=== PATIENT | female | born 1950 | race Caucasian/White ===

== ENCOUNTER 2018-09-16 19:21 | Emergency (ER) | payer MEDICARE ==
[~2018-09-16] VITALS: Ht 154.9 cm; Wt 77.6 kg
--- NOTE | 2018-09-16 19:24 | NUR ---
pt arrived via [facility] at this time. [facility]. bruising noted to nose and chin. small lac to nose. md at bedside. c-collar applied per md order.
[2018-09-16] MEDS ORDERED: HYDROCODONE/APAP 5MG-325MG TAB PO ONE (20:00)
--- NOTE | 2018-09-16 21:30 | Diagnostic Imaging Report ---
EXAMINATION: Head CT without contrast. HISTORY:Status post fall. COMPARISON:None. TECHNIQUE: Multidetector axial images were obtained from the foramen magnum to the vertex without contrast. The images were reconstructed using brain and bone algorithms. Thin section brain images were reformatted into coronal and sagittal planes. Dose modulation, iterative reconstruction, and/or weight based adjustment of the mA/kV was utilized to reduce the radiation dose to as low as reasonably achievable. Intravenous contrast: None IMAGE QUALITY: Acceptable. FINDINGS: Skull/scalp: No lytic or blastic. lesions. No surgical changes. Parenchyma: Focal hypodensity in the inferior aspect of left lentiform nucleus either represents prominent perivascular space or an old lacunar infarct. Nonspecific few, scattered supratentorial white matter hypodensity are likely related to small vessel ischemic changes. No acute hemorrhage, mass or acute major vascular territorial infarct. Arteries: No density suggestive of thrombosis. Dural sinuses: No abnormal density suggestive of thrombosis. Ventricles: No hydrocephalus or displacement. Extra-axial spaces: No abnormal density. Brain volume: Generalized age-related cerebral volume loss. Craniocervical junction: No mass, Chiari malformation, or basilar invagination. Sella: No mass. Paranasal/mastoid sinuses: Imaged portions unremarkable. IMPRESSION: 1. No acute posttraumatic intracranial abnormality. 2. Mild supratentorial white matter microvascular ischemic changes. 3. Generalized age-related cerebral volume loss. Signed by: Dr. Charlene Holley M.D. on 09/16/2018 9:27 PM
--- NOTE | 2018-09-16 21:35 | Diagnostic Imaging Report ---
History: Status post fall. Comparison studies: None Technique: Axial images were obtained through the cervical region.. Coronal and sagittal images reconstructed from the axial data. Dose modulation, iterative reconstruction, and/or weight based adjustment of the mA/kV was utilized to reduce the radiation dose to as low as reasonably achievable. Intravenous contrast: None Findings: Fractures: None. Soft tissue injuries: None. Atlantoaxial articulation: Intact. Alignment: Reversal of normal cervical lordosis is either positional or due to muscle spasm. No scoliosis. 1.5 mm grade 1 anterolisthesis at C3-C4 and 1.5 mm grade 1 retrolisthesis at C6-C7 are likely degenerative. Cervicomedullary junction: No abnormalities. The foramen magnum is patent. Soft tissues: No abnormalities. Vertebrae: No fractures, infection or neoplasm. Degenerative changes: C3-C4: Moderate right foraminal stenosis due to facet and uncovertebral arthrosis. C4-C5: Mild degenerative disc disease and anterior vertebral osteophyte. C5-C6: Mild degenerative disc disease. Moderate right foraminal stenosis due to facet and uncovertebral arthrosis. C6-C7: Moderate degenerative disc disease. Mild right foraminal stenosis due to facet and uncovertebral arthrosis. IMPRESSION: 1. No acute cervical spine fracture or dislocation. Reversal of normal cervical lordosis is either positional or due to muscle spasm. 2. Ligament, spinal cord and or vascular abnormalities cannot be excluded on the basis of this examination. 3. Cervical spondylosis as detailed above. Signed by: Dr. Charlene Holley M.D. on 09/16/2018 9:32 PM
--- NOTE | 2018-09-16 21:42 | Diagnostic Imaging Report ---
History:Status post fall. Comparison studies: None Technique: Axial images were obtained through the maxillofacial region. Coronal and sagittal images reconstructed from the axial data. Dose modulation, iterative reconstruction, and/or weight based adjustment of the mA/kV was utilized to reduce the radiation dose to as low as reasonably achievable. Intravenous contrast: None Findings: Soft tissues: Mild perinasal soft tissue edema. No radiopaque foreign body or soft tissue emphysema. Nonspecific radiopaque density in right lateral aspect of oral cavity. Bones: No acute fracture. Metallic plate and fixation screws in left mandibular ramus/body. Orbits: Globes: Intact Extra or intraconal abnormalities: None. Paranasal sinuses: Mild mucosal thickening in bilateral maxillary sinuses. IMPRESSION: 1. Mild perinasal soft tissue edema. 2. No acute fracture. Signed by: Dr. Charlene Holley M.D. on 09/16/2018 9:38 PM
[2018-09-16 22:48] VITALS: BP 111/59
--- NOTE | 2018-09-16 22:55 | NUR ---
report called to [facility], spoke to geneva duffy. ambulance called for transport back to [facility].
== END 2018-09-16 23:50 ==
LOC: ER 19:21
DX: S06.0X0A Concussion without loss of consciousness, initial encounter (principal); S00.83XA Contusion of other part of head, initial encounter; W01.0XXA Fall on same level from slipping, tripping and stumbling without subsequent striking against object, initial encounter; Y92.008 Other place in unspecified non-institutional (private) residence as the place of occurrence of the external cause; I10 Essential (primary) hypertension; J44.9 Chronic obstructive pulmonary disease, unspecified; I50.9 Heart failure, unspecified
CPT/HCPCS: 70450; 70486; 72125; 99284

== ENCOUNTER 2020-03-11 17:00 | Emergency (ER) | payer MEDICARE ==
[~2020-03-11] VITALS: Ht 154.9 cm; Wt 84.5 kg
--- OUTSIDE RECORDS SUMMARY | 2020-03-11 17:47 | XMS REPORT | Continuity of Care Document ---
Author Author [facility] t Organization [facility] Address [address] [place] [address] Phone Unavailable Support Name Relationship Address Phone [address] [place] [address] JIM[address] [place] [address] PREETI MAGA[address] [place] [address] LUIS [address]ANI[address] [place] [address] Care Team Providers Care Pack Press Operator Name Role Phone NORMA ARRIOLA MD PCP MO ARRIOLA Attphys Unavailable NATHALIA, MAGO Attphys Unavailable BARBANDI, FAROUK Attphys Unavailable ERGUN, GULCHIN Attphys Unavailable JUAN, PARVEZ Attphys Unavailable HOLLAND, MARIANA Attphys Unavailable COURTNEY SAMAYOA Attphys Unavailable FLORY, SOSA Attphys Unavailable DREW, S AMBICA Attphys Unavailable ERGUN, GULCHIN Admphys Unavailable BARBANDI, FAROUK Admphys Unavailable JUAN, PARVEZ Admphys Unavailable SOSA RUTH Admphys Unavailable Payers Payer Name Policy Type Policy Number Effective Date Expiration Date S ource Problems This patient has no known problems. Allergies, Adverse Reactions, Alerts Allergy Name Allergy Type Status Severity Reaction(s) Onset Date Inacti ve Date Treating Clinician Comments Source No Known Allergies DA Active U 2018-04-24 00:00:00 [facility] No Known Contrast Allergies DA Active U 2003-12-05 00:00: 00 [facility] No Known Drug Allergies DA Active U 2003-12-05 00:00:00 [facility] No Known Food Allergies DA Active U 2003-12-05 00:00:00 [facility] No Known Other Allergies DA Active U 2003-12-05 00:00:00 [facility] No Known Drug Intolerances DA Active U 2003-07-13 00:00:0 0 [facility] Medications This patient has no known medications. Procedures Procedure Date / Time Performed Performing Clinician [facility] e Computed tomography of brain without radiopaque contrast 201 [facility] wo contrast 2018-09-16 00:00:00 LISA RUSSELL [facility] Encounters Start Date/Time End Date/Time Encounter Type Admission Type [facility] Care Department Encounter ID Source 2020-03-07 00:00:00 2020-03-07 00:00:00 Outpatient MO ARRIOLA [facility] [id number] [place] Yarsani 2020-02-07 00:00:00 2020-02-07 00:00:00 Outpatient JULIETTE SLOANY [facility] [id number] [place] [facility] 2020-01-25 00:00:00 2020-01-25 00:00:00 Outpatient THERESEMabelDAGOBERTO [facility] [id number] [place] Y[facility] 2019-11-09 00:00:00 2019-11-09 00:00:00 Outpatient ERGUNLAURA N [facility] 021 [id number] [place] Y[facility] 2019-11-04 00:00:00 2019-11-04 00:00:00 Outpatient NATHALIA MAGO [facility] [id number] [place] [facility] 2019-10-28 00:00:00 2019-10-28 00:00:00 Outpatient JUANPARVEZ COLUNGA [facility] [id number] [place] [facility] 2019-10-26 00:00:00 2019-10-26 00:00:00 Outpatient ERGUN, EFRENLCHI N [facility] [id number] [place] Y[facility] 2019-10-15 00:00:00 2019-10-15 00:00:00 Outpatient MARIANA LINO [facility] [id number] [place] [facility] 2019-08-10 00:00:00 2019-08-10 00:00:00 Outpatient DAGOBERTO WILKS [facility] 021 [id number] [place] Y[facility] 2019-08-02 00:00:00 2019-08-02 00:00:00 Outpatient JOHNSON SAMAYOAE [facility] [id number] [place] [facility] 2019-07-28 00:00:00 2019-07-28 00:00:00 Outpatient MARIANA LINO [facility] [id number] [place] [facility] 2019-06-25 00:00:00 2019-06-25 00:00:00 Outpatient PARVEZ MARTINEZ [facility] 021 [id number] [place] [facility] 2019-05-17 00:00:00 2019-05-17 00:00:00 Outpatient MAGO SLOAN [facility] [id number] [place] [facility]ani 2019-05-03 00:00:00 2019-05-03 00:00:00 Outpatient DAGOBERTO WILKS [facility] [id number] [place] Y[facility]ani 2019-02-17 00:00:00 2019-02-17 00:00:00 Outpatient JACQUI RUTH [facility] 021 [id number] [place] [facility] 2019-02-04 00:00:00 2019-02-04 00:00:00 Outpatient JACQUI RUTH [facility] [id number] [place] [facility] 2018-09-16 19:21:00 2018-09-16 23:50:00 Departed Emergency Room 1 DOUGLAS RUSSELL [facility] [id number] [facility] Results Test Description Test Time Test Comments Results Result Comments Source CT DAYNA YAP/ANJELICA WO 2018-09-16 21:32:00 [facility] [address] [place] [address] Patient Name: KATELYN BLAIR MR #: [id number] : 1950 Age/Sex: 67/F Req #: [id number] Adm Physician: Ordered by: DOUGLAS RUSSELL MD Report #: [id number] Location: ER Room/Bed: Procedure: [id number] CT/CT MAXIO FAC/PARANAS WO Exam Date: 09/16/18 Exam Time: 2029 REPORT STATUS: Signed History:Status post fall. Comparison studies: None Technique: Axial images were obtained through the maxillofacial region. Coronal and sagittal images reconstructed from the axial data. Dose modulation, iterative reconstruction, and/or weight based adjustment of the mA/kV was utilized to reduce the radiation dose to as low as reasonably achievable. Intravenous contrast: None Findings: Soft tissues: Mild perinasal soft tissue edema. No radiopaque foreign body or soft tissue emphysema. Nonspecific radiopaque density in right lateral aspect of oral cavity. Bones: No acute fracture. Metallic plate and fixation screws in left mandibular ramus/body. Orbits: Globes: Intact Extra or intraconal abnormalities: None. Paranasal sinuses: Mild mucosal thickening in bilateral maxillary sinuses. IMPRESSION: 1. Mild perinasal soft tissue edema. 2. No acute fracture. Signed by: Dr. Charlene Holley M.D. on 09/16/2018 9:38 PM Dictated By: CHARLENE HOLLEY MD 37 Transcribed By: REJI on 09/16/182137 COPY TO: DOUGLAS RUSSELL MD CT CERVICAL SPINE WO 2018-09-16 21:27:00 [place] [address] Patient Name: KATELYN BLAIR MR #: [id number] : 1950 Age/Sex: 67/F Req #: [id number] Adm Physician: Ordered by: DOUGLAS RUSSELL MD Report #: [id number] Location: Room/Bed: Procedure: [id number] CT/CT CERVICAL SPINE WO Exam Date: 09/16/18 Exam Time: 2030 REPORT STATUS: Signed History: Status post fall. Comparison studies: None Technique: Axial images were obtained through the cervical region.. Coronal and sagittal images reconstructed from the axial data. Dose modulation, iterative reconstruction, and/or weight based adjustment of the mA/kV was utilized to reduce the radiation dose to as low as reasonably achievable. Intravenous contrast: None Findings: Fractures: None. Soft tissue injuries: None. Atlantoaxial articulation: Intact. Alignment: Reversal of normal cervical lordosis is either positional or due to muscle spasm. No scoliosis. 1.5 mm grade 1 anterolisthesis at C3-C4 and 1.5 mm grade 1 retrolisthesis at C6-C7 are likely degenerative. Cervicomedullary junction: No abnormalities. The foramen magnum is patent. Soft tissues: No abnormalities. Vertebrae: No fractures, infection or neoplasm. Degenerative changes: C3-C4: Moderate right foraminal stenosis due to facet and uncovertebral arthrosis. C4-C5: Mild degenerative disc disease and anterior vertebral osteophyte. C5-C6: Mild degenerative disc disease. Moderate right foraminal stenosis due to facet and uncovertebral arthrosis. C6-C7: Moderate degenerative disc disease. Mild right foraminal stenosis due to facet and uncovertebral arthrosis. IMPRESSION: 1. No acute cervical spine fracture or dislocation. Reversal of normal cervical lordosis is either positional or due to muscle spasm. 2. Ligament, spinal cord and or vascular abnormalities cannot be excluded on the basis of this examination. 3. Cervical spondylosis as detailed above. Signed by: Dr. Charlene Holley M.D. on 09/16/2018 9:32 PM Dictated By: CHARLENE HOLLEY MD 31 Transcribed By: REJI on 09/16/182131 COPY TO: DOUGLAS RUSSELL MD CT BRAIN WO 2018-09-16 21:22:00 [place] [id number] [place] [address] Patient Name: KATELYN BLAIR MR #: [id number] : 1950 Age/Sex: 67/F Req #: [id number] Adm Physician: Ordered by: DOUGLAS RUSSELL MD Report #: [id number] Location: ER Room/Bed: Procedure: [id number] CT/CT BRAIN WO Exam Date: 09/16/18 Exam Time: 2029 STATUS: Signed EXAMINATION: Head CT without contrast. HISTORY:Status post fall. COMPARISON:None. TECHNIQUE: Multidetector axial images were obtained from the foramen magnum to the vertex without contrast. The images were reconstructed using brain and bone algorithms. Thin section brain images were reformatted into coronal and sagittal planes. Dose modulation, iterative reconstruction, and/or weight based adjustment of the mA/kV was utilized to reduce the radiation dose to as low as reasonably achievable. Intravenous contrast: None IMAGE QUALITY: Acceptable. FINDINGS: Skull/scalp: No lytic or blastic. lesions. No surgical changes. Parenchyma: Focal hypodensity in the inferior aspect of left lentiform nucleus either represents prominent perivascular space or an old lacunar infarct. Nonspecific few, scattered supratentorial white matter hypodensity are likely related to small vessel ischemic changes. No acute hemorrhage, mass or acute major vascular territorial infarct. Arteries: No density suggestive of thrombosis. Dural sinuses: No abnormal density suggestive of thrombosis. Ventricles: No hydrocephalus or displacement. Extra-axial spaces: No abnormal density. Brain volume: Generalized age-related cerebral volume loss. Craniocervical junction: No mass, Chiari malformation, or basilar invagination. Sella: No mass. Paranasal/mastoid sinuses: Imaged portions unremarkable. IMPRESSION: 1. No acute posttraumatic intracranial abnormality. 2. Mild supratentorial white matter microvascular ischemic changes. 3. Generalized age-related cerebral volume loss. Signed by: Dr. Charlene Holley M.D. on 09/16/2018 9:27 PM Dictated By: CHARLENE HOLLEY MD 26 Transcribed By: REJI on 09/16/182126 COPY TO: DOUGLAS RUSSELL MD SOFT TISSUE 2018-04-29 15:12:00 RUN DATE: 04/29/18 [facility] PAGE 1 RUN TIME: 1513 Specimen Inquiry RUN USER: INTERFACE PATIENT: KATELYN BLAIR LOC: [facility] U #: [id number] AGE/SX: 67/F ROOM: RE04/28/18REG DR: Corrie Vidales MD : [birth year] BED: DIS: STATUS: DEP [facility] TLOC: SPEC #: [id number] RECD: 04/28/18 STATUS: ALICIA HENRIQUEZ #: [id number] CORIN: 04/28/18-[address]: Corrie Vidales MD ENTERED: 04/28/18 SP TYPE: SOFT MASS OTHR DR: Mo Arriola MD ORDERED: GROSS COPIES TO: Mo Arriola MD [address] [place] [address] Corrie Vidalse MD [address] [place] [address] MARKERS: INTRADEPARTMENTAL CONSULT PROCEDURES: GROSS (04/29/18) TISSUES: NECK, NOS - MASS TISSUE CLINICAL HISTORY COLLECTION DATE: 04/28/18 SOFT TISSUE MASS NECK COMMENT Intradepartmental consultation: RRB FINAL DIAGNOSIS Neck, soft tissue mass, excision: ADIPOSE TISSUE AND ATTACHED AND INTERSPERSED SKELETAL MUSCLE SUGGESTIVE OF POSSIBLE INTRAMUSCULAR LIPOMA NEGATIVE FOR MALIGNANCY CLINICAL CORRELATION RECOMMENDED DMW/ D 43922 CONTINUED ON NEXT PAGE ------ ------RUN DATE: 04/29/18 [facility] PAGE 2 RUN TIME: 1513 Specimen Inquiry RUN USER: INTERFACE SPEC #: [id number] PATIENT: KATELYN BLAIR #[id number] (Continued) MACROSCOPIC The specimen is received in formalin, labeled with the patient's name and identified as "soft tissue mass neck". It consists of an irregular fragment of pink-yellow fibrofatty tissue measuring 2.0 X 0.8 X 0.6 cm. The outer surface is inked blue. The cut surface varies from levine to pink-red. Tissue is serially sectioned and entirely submitted for histologic evaluation in a single cassette. GROSS PERFORMED AT [address] [address] [phone])[phone] MICROSCOPIC MICROSCOPIC PERFORMED AT [facility] All of the stains, including any controls performed, stain appropriately. [address] [address] [phone] PERFORMING SITE Diagnosis performed at: [facility] [address] [place] [address] Signed SIGNATURE ON FILE Anu Zazueta 04/29/18 1512 END OF REPORT
--- NOTE | 2020-03-11 18:21 | Diagnostic Imaging Report ---
Exam: Left ankle radiographs - 3 views History: Pain. Comparison: None. Findings/Impression: Tiny bony fragment adjacent to the medial malleolus with overlying soft tissue edema, suggestive of avulsion fracture. No evidence of displaced fracture. No dislocation. Ankle mortise is preserved. Diffuse osteopenia. Small plantar calcaneal spur. Signed by: Dr. Marcelo Vieira MD on 03/11/2020 6:17 PM
[2020-03-11] MEDS ORDERED: IBUPROFEN 400 MG TAB PO STA (18:30)
[2020-03-11] MEDS ORDERED: IBUPROFEN 400 MG TAB ONE (18:46)
--- NOTE | 2020-03-11 18:48 | Emergency Department Note ---
History of Present Illnes History of Present Illness Chief Complaint: left heel/ankle swelling and pain while walking to the bathroom History of Present Illness This is a 69 year old female. was doing well prior to this. no trauma. Historian: Patient Arrival Mode: Car Additional Treatment RING FACER: tylenol 1000mg @ 1200 History limited by: condition of the patient (normal) Onset (how long ago): hour(s) (9) Location: see above Quality: dull Radiation: Reports non-radiation Severity: moderate Onset quality: sudden Duration (how long): hour(s) (9) Timing of current episode: constant Progression: unchanged Chronicity: new Context: Denies recent illness, Denies recent surgery, Denies recent immobilization, Denies recent travel, Denies trauma/injury, Denies new medications, Denies hx of DVT/PE, Denies non-compliance w/ medications Relieving factors: rest Exacerbating factors: movement Associated symptoms: Reports denies other symptoms Treatments prior to arrival: none Past Medical/Family History Physician Review I have reviewed the patient's past medical and family history. Any updates have been documented here. Past Medical History Recent Fever: No Clinical Suspicion of Infectio: No New/Unexplained Change in Ment: No Past Medical History: CHF, CVA, Asthma, Hypothyroidism, Cancer, GERD, Hyperlipedemia, Osteoarthritis Other Medical History: Overactive bladder RLS Breast Cancer Esophageal spasms Past Surgical History: Cholecysctectomy, Hysterectomy, T&A, , Mastectomy, Hernia Repair, Bariatric Surgery Other Surgery: Right throid Abdominal skin Left wrist carpal tunnel varicose veins left leg Arm skin Bronchoplasty Septoplasty/Turbinoplasty Lysis of R ethmoid sinus Social History Smoking Cessation: Never Smoker Counseling Performed: No Alcohol Use: None Any Illegal Drug Use: No Other Last Tetanus: utd Any Pre-Existing Lines (PICC,: No Review of Systems Review of Systems Constitutional: Reports no symptoms EENTM: Reports no symptoms Cardiovascular: Reports no symptoms Respiratory: Reports no symptoms Gastrointestinal: Reports no symptoms Genitourinary: Reports no symptoms Musculoskeletal: Reports as per HPI Integumentary: Reports as per HPI Neurological: Reports no symptoms Psychological: Reports no symptoms Endocrine: Reports no symptoms Hematological/Lymphatic: Reports no symptoms Review of other systems: All other systems negative Physical Exam Related Data Allergies: Coded Allergies: No Known Allergies (Unverified , 09/16/18) Triage Vital Signs Vital Signs Date Time Temp Pulse Resp B/P (MAP) Pulse Ox O2 Delivery O2 Flow Rate FiO2 03/11/20 17:12 98.5 62 18 122/65 97 Room Air Vital signs reviewed: Yes Physical Exam CONSTITUTIONAL Constitutional: Present well-developed, Present well-nourished HENT HENT: Present normocephalic, Present atraumatic, Present oropharynx clear/moist, Present nose normal HENT L/R: Present left ext ear normal, Present right ext ear normal EYES Eyes: Reports PERRL, Reports conjunctivae normal NECK Neck: Present ROM normal, Present supple PULMONARY Pulmonary: Present effort normal, Present breath sounds normal CARDIOVASCULAR Cardiovascular: Present regular rhythm, Present heart sounds normal, Present capillary refill normal, Present normal rate GASTROINTESTINAL Abdominal: Present soft, Present nontender, Present bowel sounds normal GENITOURINARY Genitourinary: Present exam deferred SKIN Skin: Present warm, Present dry MUSCULOSKELETAL Musculoskeletal: Present ROM normal, Present tenderness (left ankle/achilles area swelling) NEUROLOGICAL Neurological: Present alert, Present oriented x 3, Present no gross motor or sensory deficits PSYCHOLOGICAL Psychological: Present mood/affect normal, Present judgement normal Results Imaging Imaging results reviewed: Yes Impressions [place] [address] Patient Name: KATELYN BLAIR MR #: [id number] : 1950 Age/Sex: 69/F Req #: [id number] Adm Physician: Ordered by: CECIL DE LA ROSA Report #: [id number] Location: [facility] Room/Bed: Procedure: [id number] HOPD/ANKLE 3VIEW LT - HOPD Exam Date: 03/11/20 Exam Time: 1752 REPORT STATUS: Signed Exam: Left ankle radiographs - 3 views History: Pain. Comparison: None. Findings/Impression: Tiny bony fragment adjacent to the medial malleolus with overlying soft tissue edema, suggestive of avulsion fracture. No evidence of displaced fracture. No dislocation. Ankle mortise is preserved. Diffuse osteopenia. Small plantar calcaneal spur. Signed by: Dr. Nikolay Kamara MD on 03/11/2020 6:17 PM Dictated By: NIKOLAY KAMARA MD 16 Transcribed By: REJI on 03/11/201816 COPY TO: CECIL DE LA ROSA~ Critical Care Time Comments [place] [id number] Assessment & Plan Medical Decision Making MDM fracture/sprain Assessment & Plan Final Impression: (1) Avulsion fracture of ankle Depart Disposition: HOME, SELF-CARE Last Vital Signs Date Time Temp Pulse Resp B/P (MAP) Pulse Ox O2 Delivery O2 Flow Rate FiO2 03/11/20 17:12 98.5 62 18 122/65 97 Room Air Medications in the ED Ibuprofen 800 mg ONCE STAT PO ; Start 03/11/20 at 18:30; Stop 03/11/20 at 18:32; Status DC CECIL DE LA ROSA Mar 11, 2020 18:48
== END 2020-03-11 19:20 | disposition home or self-care (01) ==
LOC: FSED 17:20
DX: S82.52XA Displaced fracture of medial malleolus of left tibia, initial encounter for closed fracture (principal); Y93.01 Activity, walking, marching and hiking; Y92.008 Other place in unspecified non-institutional (private) residence as the place of occurrence of the external cause; M77.32 Calcaneal spur, left foot; E78.5 Hyperlipidemia, unspecified; I50.9 Heart failure, unspecified; E03.9 Hypothyroidism, unspecified; K21.9 Gastro-esophageal reflux disease without esophagitis; Z85.3 Personal history of malignant neoplasm of breast; Z86.73 Personal history of transient ischemic attack (TIA), and cerebral infarction without residual deficits
CPT/HCPCS: 99283